=== PATIENT | male | born 1955 ===

== ENCOUNTER 2021-01-17 11:23 | Outpatient (CLI) | payer MEDICARE, OTHER ==
[2021-01-18 01:26] LABS: SARS-CoV-2 PCR by NAA DETECTED (NotDetected)
== END 2021-01-17 11:24 | disposition home or self-care (01) ==
LOC: LABBT 11:23
PROVIDERS: ATTEND Surgery
DX: U07.1 COVID-19 (principal); Z01.818 Encounter for other preprocedural examination; M79.9 Soft tissue disorder, unspecified
CPT/HCPCS: 93005; U0003; U0005; 87635; 93010

== ENCOUNTER 2021-02-16 10:07 | Day surgery (SDC) | payer MEDICARE, OTHER ==
[2021-02-15 07:58] VITALS: BMI 26.2
[2021-02-16] MEDS ORDERED: Lidocaine 1% w/Epinephrine 1:100K 20 ML VIAL ONE (12:25)
[2021-02-16] MEDS ORDERED: Bupivacaine 0.25% HCL 30 ML VIAL ONE (12:25)
[2021-02-16] MEDS ORDERED: Midazolam HCl 2 mg/2 ml Vial ONE (12:34)
[2021-02-16] MEDS ORDERED: Fentanyl 100 MCG/2 ML VIAL ONE (12:34)
[2021-02-16] MEDS ORDERED: Ondansetron PF 4 MG/2 ML Vial ONE (12:56)
[2021-02-16] MEDS ORDERED: PROPOFOL 200 MG/20 ML VIAL ONE (12:56)
[2021-02-16] MEDS ORDERED: Dexamethasone 20 MG/5 ML VIAL ONE (12:56)
[2021-02-16] MEDS ORDERED: Lidocaine 1% PF 5 ML VIAL ONE (12:56)
== END 2021-02-16 15:05 | disposition home or self-care (01) ==
LOC: SDC 10:07
PROVIDERS: ATTEND Surgery
PROC: 0KB80ZZ Excision of Left Upper Arm Muscle, Open Approach (ICD-10-PCS; principal; 2021-02-16)
DX: D17.22 Benign lipomatous neoplasm of skin and subcutaneous tissue of left arm (principal); I10 Essential (primary) hypertension; G47.30 Sleep apnea, unspecified; D64.9 Anemia, unspecified; F17.200 Nicotine dependence, unspecified, uncomplicated; Z79.899 Other long term (current) drug therapy; Z91.013 Allergy to seafood
CPT/HCPCS: 88304; J0690; J1100; J2250; J2405; J2704; J3010; S0020